=== PATIENT | female | born 1975 | race Caucasian/White ===

== ENCOUNTER 2022-05-16 16:50 | Outpatient (CLI) | payer BC, SELFPAY ==
--- NOTE | 2022-05-16 06:00 | DI.RAD_ITS ---
Exam(s) XR PAIN CLINIC SACRIOILIAC 2V EXAM: XR PAIN CLINIC SACRIOILIAC 2V CLINICAL HISTORY: Dx: Sacroiliac Joint Dysfunction TECHNIQUE: 2D and realtime digital imaging was performed. Radiologist not present. CONTRAST MATERIAL: None. COMPARISON: No exams were available for comparison FINDINGS: Fluoroscopy was provided for pain management therapy. Please refer to procedure report or details. Radiation Exposure Index: Ka,r=6.15 mGy IMPRESSION: As above. RADIATION DOSE DELIVERED:
[2022-05-16 17:12] VITALS: BP 132/94; PULSE 77; RESP 20; TEMP 36.5; O2SAT 96
[2022-05-16 17:48] VITALS: BP 135/79; PULSE 73; RESP 18; O2SAT 100
[2022-05-16] MEDS: methylPREDNISolone ACETATE 80 MG/ML VIAL IJ (17:49)
[2022-05-16] MEDS: Omnipaque 240 MG/ML 50 ML BTL IJ (17:49)
--- NOTE | 2022-05-16 18:44 | PDOC.PAIN_ITS ---
Date of service: 05/16/22 Time of Service: 17:45 Pain Clinic Procedure Note Procedure Note Procedure Note: INTRA-ARTICULAR SI JOINT INJECTION Digna Talavera has been referred to the [facility] for intra-articular SI joint injection. COMMENTS: She was previously evaluated in our clinic by Dr. Mendoza, who recommended this procedure. Pre-procedure pain VAS was 4/10 directly over the left sacroiliac joint. Dx: Left Sacroiliac joint dysfunction Patient was interviewed and the medical record reviewed. There were no medical, pharmacologic, radiographic or other structural contraindications to attempting fluoroscopically guided intra-articular SI joint injection. Risks and expected side effects as well as potential benefit of the procedure were reviewed and voiced concerns addressed. The printed consent form was signed and witnessed. Standard time-out procedure was performed. Patient was placed in the prone position on the fluoroscopy table and automated blood pressure cuff and pulse oximeter applied. The skin entry point for approaching the left SI joint was identified under the most advantageous fluoroscopic view and marked. Following thorough Chlorhexadine preparation of the skin and draping and 1% lidocaine infiltration of the skin entry point and subcutaneous tissues, a 22 gauge spinal needle was placed under fluoroscopic guidance into the left SI joint was identified under the most advantageous fluoroscopic view and marked. Intra-articular placement was confirmed by a clear arthrogram resulting from the injection of 0.25ml Omnipaque 240, 1ml 1% lidocaine, and 40mg Depomedrol were injected intra-articularily with an initial reproduction of a significant component of the usual pain. Vital signs were stable throughout the procedure and were as recorded in the doc flowsheet by the nursing staff. If given, dosages of intravenous drugs for anxiolysis and analgesia were documented in MAR. Follow up plans and appointments were discussed with the patient. Post procedure instruction was given as documented in nursing documentation and having met discharge criteria, and was discharged from the [facility]. COMMENTS: Post-procedure pain VAS was 0/10. Aurelio Michael DO, MPH [facility] CC: Rudi Culver
== END 2022-05-16 16:51 | disposition home or self-care (01) ==
LOC: PC 16:51
PROVIDERS: PCP Physician Assistant; Visit Provider Preventive Medicine Occupational Medicine
DX: M53.3 Sacrococcygeal disorders, not elsewhere classified (principal)
CPT/HCPCS: 27096; 72200; J1040; Q9967